=== PATIENT | male | born 1990 | race African-American/Black ===

== ENCOUNTER 2017-01-08 20:40 | Emergency (ER) | payer OTHER ==
[2017-01-08 22:32] VITALS: BP 139/80
--- NOTE | 2017-01-08 23:54 | ED ---
Lower Extremity - HPI Summary HPI Summary: Patient presents to ED with CC of 10/10 pain over lateral lower extremity and worse with movement since 2 days ago. He states the pain over the lateral side on palpation, radiates to the medial side and gayla the deltoid ligament. 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 He hasn't taken anything for the pain , and is refusing all medications in he hosp and upon discharge. He denies trauma or other injury. Denies previous DVT, clotting disorder. Denies recent travel, smoking or known malignancy. He has never had anything like this before. He denies pain in the calf, knee or ankle. He denies numbness, tingling or color or temperature changes. - History of Current Complaint Chief Complaint: EDExtremityLower Stated Complaint: RT LEG PAIN, WORSENING Time Seen by Provider: 01/08/17 21:20 Hx Obtained From: Patient Onset of Pain: Immediate Onset/Duration: Hours Severity Initially: Moderate Severity Currently: Moderate Pain Intensity: 2 Pain Scale Used: 0-10 Numeric Timing: Constant Location: Is Discrete @ - right lateral lower leg Character Of Pain: Sharp, Burning Associated Signs And Symptoms: Positive: Negative Aggravating Factor(s): Standing, Ambulation, Movement, Weight Bearing Alleviating Factor(s): Rest Able to Bear Weight: Yes - Risk Factors Gout Risk Factors: Male DVT Risk Factors: Negative Septic Arthritis Risk Factor: Negative - Allergies/Home Medications Allergies/Adverse Reactions: Allergies Allergy/AdvReac Type Severity Reaction Status Date / Time No Known Allergies Allergy Verified 01/08/17 20:47 PMH/Surg Hx/FS Hx/Imm Hx Previously Healthy: Yes - Immunization History Date of Tetanus Vaccine: t Hx Pertussis Vaccination: No Immunizations Up to Date: Unable to Obtain/Confirm Infectious Disease History: No Infectious Disease History: Denies: History Other Infectious Disease, Traveled Outside the [place] in Last 30 Days - Family History Known Family History: Positive: None Family History: negative for HTN or CAD - Social History Occupation: Employed Full-time Lives: With Family Alcohol Use: Daily Hx Substance Use: No Substance Use Type: Reports: Marijuana Substance Use Comment - Amount & Last Used: not every day Smoking Status (MU): Heavy Every Day Tobacco Smoker Type: Cigars Amount Used/How Often: 4 cigars/day Review of Systems Constitutional: Negative Eyes: Negative Cardiovascular: Negative Respiratory: Negative Positive: no symptoms reported, see HPI Musculoskeletal: Negative Positive: Myalgia - left lateral leg pain Neurological: Negative Psychological: Normal All Other Systems Reviewed And Are Negative: Yes Physical Exam - Summary Physical Exam Summary: Patient with tenderness on palpation over the tendon of tibialis anterior and peroneal longus tendon and worse with movement Triage Information Reviewed: Yes Vital Signs On Initial Exam: Initial Vitals Temp Pulse Resp BP Pulse Ox 98.9 F 95 20 150/90 100 01/08/17 20:40 01/08/17 20:40 01/08/17 20:40 01/08/17 20:40 01/08/17 20:40 Vital Signs Reviewed: Yes Appearance: Positive: Well-Appearing, No Pain Distress, Well-Nourished Skin: Positive: Warm, Skin Color Reflects Adequate Perfusion Head/Face: Positive: Normal Head/Face Inspection Neck: Positive: Supple, No Lymphadenopathy Respiratory/Lung Sounds: Positive: Clear to Auscultation, Breath Sounds Present Cardiovascular: Positive: Normal, RRR Musculoskeletal: Positive: Pain @ - left lateral lower leg, medial left lower leg pain on palpation Neurological: Positive: Sensory/Motor Intact, Alert, Oriented to Person Place, Time Psychiatric: Positive: Normal - [place] Coma Scale Coma Scale Total: 15 Diagnostics - Vital Signs Vital Signs Temp Pulse Resp BP Pulse Ox 01/08/17 22:31 99 F 75 16 139/80 01/08/17 21:24 98.9 F 95 20 150/90 100 01/08/17 20:40 98.9 F 95 20 150/90 100 - Laboratory Lab Statement: Any lab studies that have been ordered have been reviewed, and results considered in the medical decision making process. Lower Extremity Course/Dx - Course Course Of Treatment: Patient presents with left lateral lower leg pain x 2 days worse with movement and palpation. Patient has no risk factors for DVT and denies pain in the calf. Brandy sign negative. He uses the leg frequently with driving. It was explained to patient this is likely a tendonitis around the. tendon of tibialis anterior and peroneal longus tendon d/t location. Patient refusing to take Ibuprofen even after encouragement, so provider suggested rest and turmeric. he will return if symptoms worsen. - Diagnoses Differential Diagnosis/HQI/PQRI: Positive: Strain, Tendonitis, Tenosynovitis Provider Diagnoses: Tendinitis Discharge - Discharge Plan Condition: Stable Disposition: HOME Patient Education Materials: Tendinitis (ED) Referrals: No Primary Care Phys,NOPCP [Primary Care Provider] - Additional Instructions: Tendonitis Rest the area for 2-3 days Ice to the area 20 minutes at a time tendon of tibialis anterior and peroneal longus tendinitis Turmeric: Super RebbL Herbs Turmeric Mcneil Mild You can buy the spice and make your own (watch youtube videos: [email or web address]) Ibuprofen 600mg three times daily for 4-5 days will help with the pain and inflammation.
== END 2017-01-08 22:31 | disposition home or self-care (01) ==
LOC: ED 20:40
DX: M77.9 Enthesopathy, unspecified (principal); M79.604 Pain in right leg
CPT/HCPCS: 99281